=== PATIENT | male | born 2000 | race Caucasian/White ===

== ENCOUNTER 2020-07-15 14:36 | Emergency (ER) | payer MEDICAID ==
[~2020-07-15] VITALS: Ht 157.5 cm; Wt 158.8 kg
[2020-07-15] MEDS ORDERED: CONCERTA54 M1 PO (14:49)
[2020-07-15] MEDS ORDERED: FENOFIBRATE160 MG PO (14:49)
[2020-07-15] MEDS ORDERED: LISINOPRIL10 MG PO (14:49)
[2020-07-15] MEDS ORDERED: DOXYCYCLINE 10100 MG PO (15:16)
[2020-07-15] MEDS ORDERED: APAP W/CODEINE1 TA2 PO (15:16)
[2020-07-15 15:27] VITALS: BP 155/89
== END 2020-07-15 15:28 | disposition home or self-care (01) ==
LOC: M.ERS 14:36
DX: L02.232 Carbuncle of back [any part, except buttock and flank] (principal); L02.222 Furuncle of back [any part, except buttock and flank]; I10 Essential (primary) hypertension; E78.00 Pure hypercholesterolemia, unspecified; F90.9 Attention-deficit hyperactivity disorder, unspecified type; E66.01 Morbid (severe) obesity due to excess calories; Z79.899 Other long term (current) drug therapy; Z68.44 Body mass index [BMI] 60.0-69.9, adult